=== PATIENT | male | born 1990 | race Caucasian/White ===

== ENCOUNTER 2024-12-01 12:08 | Outpatient (OUT) | payer BC, SELFPAY ==
[2024-12-01 13:15] LABS: Basophils Percent Auto 0.4 % (0.2-2.0); Eosinophils Absolute Auto 0.3 10^3/uL (0.0-0.7); Eosinophils Percent Auto 3.9 % (0.9-7.0); Hematocrit 46.6 % (42.0-54.0); Hemoglobin 15.4 g/dL (14.0-18.0); Immature Granulocytes Abs Auto 0.02 10^3/uL (0.00-0.03); Immature Granulocytes Pct Auto 0.3 % (0.0-0.5); Lymphocytes Percent Auto 25.5 % (20.5-60.0); Mean Corpuscular Hemoglobin 29.7 pg (25.9-34.0); Mean Platelet Volume 10.9 fL (9.5-13.5); Monocytes Absolute Auto 0.5 10^3/uL (0.3-0.8); Monocytes Percent Auto 6.6 % (1.7-12.0); Neutrophils Percent Auto 63.3 % (43.0-75.0); Platelet Count 203 10^3/uL (150-450); Red Blood Count 5.18 10^6/uL (4.70-6.10); Red Cell Distribution Width 13.1 % (11.0-15.0); White Blood Count 7.9 10^3/uL (4.0-11.0)
[2024-12-01 13:34] LABS: Alanine Aminotransferase 153 U/L (16-63); Albumin Globulin Ratio 1.1; Alkaline Phosphatase 72 U/L (46-116); Anion Gap 13.1; Aspartate Amino Transferase 57 U/L (15-37); BUN Creatinine Ratio 17.9; Bilirubin Total 0.4 mg/dL (0.2-1.0); Calcium 9.2 mg/dL (8.5-10.1); Carbon Dioxide 28.8 mmol/L (21.0-32.0); Chloride 104 mmol/L (98-107); Estimated GFR (African America >60 (>=60 mL/min/1.73m^2); Estimated GFR (Non-African Ame >60 (>=60 mL/min/1.73m^2); Free T3 3.75 pg/mL (2.18-3.98); Globulin 3.7 g/dL; Glucose 121 mg/dL (74-106); Potassium 3.9 mmol/L (3.5-5.1); Sodium 142 mmol/L (136-145); Thyroid Stimulating Hormone 1.212 uIU/mL (0.358-3.740); Total Protein 7.7 g/dL (6.4-8.2); Troponin I High Sensitivity 10.5 pg/mL (4.0-76.1)
== END 2024-12-01 12:09 | disposition home or self-care (01) ==
PROVIDERS: PCP Family Medicine; Visit Provider Family Medicine
DX: R60.9 Edema, unspecified (principal); I50.30 Unspecified diastolic (congestive) heart failure; I11.0 Hypertensive heart disease with heart failure
CPT/HCPCS: 36415; 80053; 83880; 84436; 84443; 84481; 84484; 85025

== ENCOUNTER 2024-12-12 08:53 | Outpatient (OUT) | payer BC, SELFPAY ==
--- NOTE | 2024-12-12 | US_ITS ---
The [address] [address] Patient Name: MORELIA OLIVEROS MRN: [id number] date: 1990 Sex: M Assigned Patient Location: US Current Patient Location: US Accession/Order Number: [id number] Exam Date: 12/12/2024 10:52 Report Date: 12/12/2024 10:55 At the request of: SUSANNA BRAGG MD Procedure: US abdomen complete COMPLETE ABDOMINAL ULTRASOUND HISTORY: None FINDINGS: Elevated LFTs LIVER: Fatty hepatomegaly with length of 20.8 cm. Normal blood flow portal vein. GALLBLADDER: Unremarkable BILE DUCTS: 4 9 prominence of common bile duct measuring 5.8 mm. PANCREAS: Unremarkable RIGHT KIDNEY: Right kidney measures 13.7 cm. LEFT KIDNEY: Left kidney measures 11.7 cm No hydronephrosis identified. No renal calculus seen. No renal mass or cyst identified. No perirenal abnormality seen. No splenic mass or enlargement seen. The upper portions of the IVC and abdominal aorta unremarkable. No free intraperitoneal fluid seen. US/US abdomen complete IMPRESSION: Fatty hepatomegaly. Mild prominence common bile duct without obstructing stone seen. Unremarkable gallbladder. Impression dictated by: Mike Rodriguez M.D. 12/12/2024 10:55 AM Dictation Location[id number] Electronically authenticated by: [id number] Y Date: 12/12/2024 10:55
--- OUTSIDE RECORDS SUMMARY | 2024-12-12 08:55 | XMS_ITS | CCD ---
Author Organization [facility] Care Team Providers Care Windows Server Support Technician Name Role Phone DR SUSANNA BRAGG Attending Unavailable MAHSA, DR MULLINS Consulting Unavailable DR SUSANNA BRAGG Admitting Unavailable DR SUSANNA BRAGG Attending Unavailable MAHSA, DR MULLINS Consulting Unavailable MAHSA, DR MULLINS Admitting Unavailable Problems Active Problems Problem Classification Problem Date Documented Da te Episodic/Chronic Acute bronchitis (1 source) Acute bronchitis, unspecified; Translations: [ACUTE BRONCHITIS UNSPECIFIED] Onset: 08-06-2021 Episodic Unclassified (3 sources) CONTACT W/AND (SUSP) EXPOS COVID-19; Translations: [CONTACT W/AND (SUSP) EXPOS COVID-19] Onset: 05-14-2021 Viral infection (1 source) COVID-19; Translations: [COVID-19] Onset: 08-06-2021 Past or Other Problems Problem Classification Problem Date Documented Da te Episodic/Chronic Unclassified (1 source) CONTACT W/AND (SUSP) EXPOS COVID-19; Translations: [CONTACT W/AND (SUSP) EXPOS COVID-19] Onset: 08-01-2021 Results Test Name Value Interpretation Reference Range Facil ity Covid-19 PCR (CVDTBH)on SARS-CoV-2 (COVID-19) RNA CAIT+probe Ql (Unsp spec) Detected Critically abnormal NOT DETECTED [facility] Comment on above: Result Comment: This test is not yet keyana roved or cleared by the [place] FDA. When there are no FDA-approved or cleared tests available, and other criteria are met, FDA can make tests available under an emergency access mechanism called an Emergency Use Authorization (EUA). The EUA for this test is supported by the [employer] Tr[employer] Operator of Health and Human Service's (HHS's) declaration that circumstances exist to justify the emergency use of in vitro diagnostics for the detection and/or diagnosis of the virus that causes COVID-19. This EUA will remain in effect (meaning this test can be used) for the duration of the COVID-19 declaration justifying emergency of IVDs, unless it is terminated or revoked by FDA (after which the test may no longer be used). Performed By: #### C VDTBH #### [facility] [address] [place] [id number] Sabirna Forde Covid-19 PCR ([facility])on 04-28 SARS-CoV-2 (COVID-19) RNA CAIT+probe Ql (Unsp spec) Not detected Normal NOT DETECTED [facility] Comment on above: Result Comment: This test is not yet keyana roved or cleared by the [place] FDA. When there are no FDA-approved or cleared tests available, and other criteria are met, FDA can make tests available under an emergency access mechanism called an Emergency Use Authorization (EUA). The EUA for this test is supported by the [employer] Trimming [employer] Operator of Health and Human Service's (HHS's) declaration that circumstances exist to justify the emergency use of in vitro diagnostics for the detection and/or diagnosis of the virus that causes COVID-19. This EUA will remain in effect (meaning this test can be used) for the duration of the COVID-19 declaration justifying emergency of IVDs, unless it is terminated or revoked by FDA (after which the test may no longer be used). When diagnostic testing is negative, the possibility of a false negative should be considered in the context of a patient's recent exposures and the presence of clinical signs and symptoms consistent with SARS-CoV-2. Performed By: #### C VDTB #### [facility] [address] [place] [id number] Sabrina Forde Encounters Encounter Date Encounter Type Care Provider Facility Start: 08-01-2021 End: 08-01-[address] SUSANNA BRAGG Facility:[facility] Start: 05-09-2021 End: 05-09-[address] SUSANNA BRAGG Facility:[facility] Payers Date Payer Category Payer Unknown [id number] 1990 Unknown [id number] 1959 Unknown [id number] Summary Purpose Family History No Family History Records Found Advance Directives No Advanced Directives Records Found Additional Source Comments (unrecognized sect ion and content) No Status Records Found INFORMATION SOURCE (unrecogn ized section and content) DATE CREATED AUTHOR 08/06/2021 [facility] FOR RECORDS PERTAINING TO PATIENTS WHO ARE OR HAVE BEEN ENROLLED IN A CHEMICAL DEPENDENCY/SUBSTANCEABUSE PROGRAM, SOME INFORMATION MAY BE OMITTED. This clinical summary was aggregated from multiple sources. Caution should be exercised in using it in the provision of clinical care. This summary normalizes information from multiple sources, and as a consequence, information in this document may materially change the coding, format and clinical context of patient data. In addition, data may be omitted in some cases. CLINICAL DECISIONS SHOULD BE BASED ON THE PRIMARY CLINICAL RECORDS. [facility] provides no warranty or guarantee of the accuracy or completeness of information in this document.
== END 2024-12-12 08:54 | disposition home or self-care (01) ==
LOC: US 08:53
PROVIDERS: PCP Family Medicine; Visit Provider Family Medicine
DX: R74.8 Abnormal levels of other serum enzymes (principal); K76.0 Fatty (change of) liver, not elsewhere classified
CPT/HCPCS: 76700